=== PATIENT | female | born 1965 | race Caucasian/White ===

== ENCOUNTER 2019-05-04 00:16 | Day surgery (SDC) | payer OTHER ==
[~2019-05-04] VITALS: Ht 172.7 cm; Wt 65.3 kg
[~2019-05-04 00:16] MED LIST: CET10 PO; ESTR0.62 PO; LEVO75TA73 PO; MELA5TAB3 PO; NORG1TAB6 PO
[2019-05-04 09:15] VITALS: BP 130/89
[2019-05-04] MEDS ORDERED: NORMOSOL R SOLN(*) 1000 ML BAG 1,000 ML IV PRN (11:30)
[2019-05-04] MEDS ORDERED: LIDOCAINE/SOD BICARB 8.4% SYR ID ONE (11:30)
[2019-05-04 12:57] VITALS: BP 95/83
[2019-05-04 13:26] VITALS: BP 111/78
[2019-05-04 13:27] VITALS: BP 107/70
[2019-05-04 13:28] VITALS: BP 100/69
[2019-05-04] MEDS ORDERED: PROPOFOL EMUL(*) 10MG/ML 20 ML 140 ML ONE (13:30)
== END 2019-05-04 13:46 | disposition home or self-care (01) ==
LOC: OR 00:16
PROVIDERS: ATTEND Family Medicine
DX: Z12.11 Encounter for screening for malignant neoplasm of colon (principal); Z80.0 Family history of malignant neoplasm of digestive organs
CPT/HCPCS: 00812; 45378; J2704